=== PATIENT | male | born 1950 | race Caucasian/White ===

== ENCOUNTER 2021-05-26 09:50 | Outpatient (CLI) | payer MEDICARE, OTHER, SELFPAY ==
[2021-05-26 10:09] VITALS: BP 121/76; PULSE 62; RESP 16; TEMP 36.4; O2SAT 95; BMI 25.1
[2021-05-26 10:45] VITALS: BP 108/68; PULSE 60; RESP 18; O2SAT 94
[2021-05-26 11:40] VITALS: BP 114/70; PULSE 57; RESP 16; TEMP 36.6; O2SAT 95
== END 2021-05-26 09:51 | disposition home or self-care (01) ==
LOC: OPS 09:54
PROVIDERS: PCP Nurse Practitioner Family; Visit Provider Nurse Practitioner Family
DX: U07.1 COVID-19 (principal)
CPT/HCPCS: 96365

== ENCOUNTER → 2024-05-01 14:07 | Outpatient (BNVA) | payer MEDICARE, SELFPAY | PROVIDERS: PCP Nurse Practitioner Family; Visit Provider Podiatrist Foot & Ankle Surgery | DX: L60.3 Nail dystrophy (principal); I73.9 Peripheral vascular disease, unspecified; G62.9 Polyneuropathy, unspecified | CPT/HCPCS: 11721; 99203 ==

== ENCOUNTER → 2024-07-04 13:41 | Outpatient (BNVA) | payer MEDICARE, SELFPAY | PROVIDERS: PCP Nurse Practitioner Family; Visit Provider Podiatrist Foot & Ankle Surgery | DX: L60.3 Nail dystrophy (principal); I73.9 Peripheral vascular disease, unspecified; G62.9 Polyneuropathy, unspecified | CPT/HCPCS: 11721 ==